=== PATIENT | female | born 1995 | race Caucasian/White ===

== ENCOUNTER → 2022-09-22 | Outpatient (REF) | payer OTHER ==
[2022-09-22 17:17] LABS: BASO # 0.1 10^3/uL (0.0-0.2); BASO % 0.7 % (0.0-1.0); EOS # 0.5 10^3/uL (0.0-0.5); HEMATOCRIT 47.3 % (36.0-47.0); HEMOGLOBIN 15.5 g/dl (12.0-15.5); LYMPH # 2.7 10^3/uL (1.5-5.0); MEAN CORPUSCULAR HEMOGLOBIN 27.2 pg (27.0-33.0); MEAN CORPUSCULAR HGB CONC 32.8 g/dl (32.0-36.5); MONO # 0.4 10^3/uL (0.0-0.8); MONO % 4.6 % (2.0-8.0); NEUTROPHILS # 5.3 10^3/uL (1.5-8.5); NEUTROPHILS % 59.4 % (36.0-66.0); PLATELET COUNT, AUTOMATED 386 10^3/uL (150-450)
[2022-09-22 17:40] LABS: APPEARANCE, URINE MANUAL CLEAR (CLEAR); BILIRUBIN, URINE MANUAL NEGATIVE (NEGATIVE); BLOOD URINE MANUAL TRACE (NEGATIVE); COLOR, URINE MANUAL YELLOW (YELLOW); GLUCOSE, URINE (UA) MANUAL NEGATIVE (NEGATIVE); KETONE, URINE MANUAL NEGATIVE (NEGATIVE); LEUKOCYTE ESTERASE, URINE MAN TRACE (NEGATIVE); NITRITE, URINE MANUAL NEGATIVE (NEGATIVE); PROTEIN, URINE MANUAL NEGATIVE (NEGATIVE); SPECIFIC GRAVITY,URINE MANUAL 1.015 (1.002-1.035); UROBILINOGEN, URINE MANUAL NORMAL (NORMAL)
[2022-09-22 17:56] LABS: ERYTHROCYTE SEDIMENTATION RATE 3 mm/hr (0-20)
[2022-09-22 17:58] LABS: ALBUMIN 4.6 GM/DL (3.2-5.2); ALT/SGPT 19 U/L (12-78); BILIRUBIN,TOTAL 0.8 MG/DL (0.2-1.0); BLOOD UREA NITROGEN 9 MG/DL (7-18); CALCIUM LEVEL 9.4 MG/DL (8.5-10.1); CARBON DIOXIDE LEVEL 28 MEQ/L (21-32); CHLORIDE LEVEL 104 MEQ/L (98-107); CREATININE FOR GFR 0.74 MG/DL (0.55-1.30); GLOMERULAR FILTRATION RATE > 60.0 (>60); GLUCOSE, FASTING 82 MG/DL (70-100); LDH LACTATE DEHYDROGENASE 194 U/L (84-246); POTASSIUM SERUM 3.7 MEQ/L (3.5-5.1); SODIUM LEVEL 140 MEQ/L (136-145); TOTAL PROTEIN 7.7 GM/DL (6.4-8.2)
[2022-09-22 18:17] LABS: IMMUNOGLOBULIN M 67.1 MG/DL (40-230); TOTAL PROTEIN 7.9 GM/DL (6.4-8.2)
[2022-09-22 18:56] LABS: BACTERIA, URINE SMALL AMOUNT; CALCIUM OXALATE CRYSTALS,URINE MOD AMOUNT /hpf; RBC, URINE 0-1 /hpf (0-3); SQUAMOUS EPITHELIAL CELL URINE SMALL AMOUNT /hpf (SMALL AMT); WBC, URINE 0-1 /hpf (0-3)
[2022-09-22 19:13] LABS: COMPLEMENT C3 120 MG/DL (90-180); COMPLEMENT C4 32 MG/DL (10-40); HEPATITIS B SURFACE ANTIGEN NEGATIVE (NEGATIVE); TOTAL 25(OH) VITAMIN D 32.5 NG/ML (30.0-100.0)
[2022-09-22 19:30] LABS: HEPATITIS C VIRUS ABY INDEX 0.2 INDEX (<0.8)
[2022-09-22 19:34] LABS: HEPATITIS B CORE ANTIBODY IGM NEGATIVE (NEGATIVE)
== END ==
LOC: M SFHCRHEU 14:31
PROVIDERS: ATTEND Internal Medicine Rheumatology
DX: R76.8 Other specified abnormal immunological findings in serum (principal); M35.3 Polymyalgia rheumatica; R21 Rash and other nonspecific skin eruption; M35.00 Sjogren syndrome, unspecified; R05.8 Other specified cough

== ENCOUNTER → 2022-10-08 | Outpatient (CLI) | payer OTHER | LOC: M WHC 12:25 | PROVIDERS: ATTEND Nurse Practitioner Family | DX: Z85.850 Personal history of malignant neoplasm of thyroid (principal) ==

== ENCOUNTER → 2022-10-12 | Outpatient (CLI) | payer OTHER | LOC: M PLALAB 12:55 | PROVIDERS: ATTEND Internal Medicine Rheumatology | DX: R76.8 Other specified abnormal immunological findings in serum (principal); M35.3 Polymyalgia rheumatica; R21 Rash and other nonspecific skin eruption; M35.00 Sjogren syndrome, unspecified; R05.8 Other specified cough ==

== ENCOUNTER → 2022-12-31 | Outpatient (CLI) | payer OTHER | LOC: M WHC 10:53 | PROVIDERS: ATTEND Nurse Practitioner Family | DX: N63.13 Unspecified lump in the right breast, lower outer quadrant (principal); Z12.31 Encounter for screening mammogram for malignant neoplasm of breast; Z80.3 Family history of malignant neoplasm of breast ==

== ENCOUNTER → 2023-01-07 | Outpatient (CLI) | payer OTHER | LOC: M RAD 13:46 | PROVIDERS: ATTEND Physician Assistant | DX: R59.0 Localized enlarged lymph nodes (principal) ==

== ENCOUNTER → 2023-01-12 | Outpatient (CLI) | payer OTHER ==
[~2023-01-12] MED LIST: **SFHN** LIDOCAINE 1% MDV 20ML VIAL ONE; **SFHN** SODIUM BICARBONATE 8.4% 10MEQ 10ML VIAL ONE; LEVO112T2 PO
[2023-01-12 10:32] VITALS: BP 122/70
== END ==
LOC: M WHCPRO 09:13
PROVIDERS: ATTEND Nurse Practitioner Family
DX: R92.8 Other abnormal and inconclusive findings on diagnostic imaging of breast (principal); N63.11 Unspecified lump in the right breast, upper outer quadrant

== ENCOUNTER → 2023-01-14 | Outpatient (CLI) | payer OTHER ==
[~2023-01-14] MED LIST changes: -**SFHN** LIDOCAINE 1% MDV 20ML VIAL ONE; -**SFHN** SODIUM BICARBONATE 8.4% 10MEQ 10ML VIAL ONE
== END ==
LOC: M PLAIMG 08:34
PROVIDERS: ATTEND Internal Medicine Rheumatology
DX: Z15.89 Genetic susceptibility to other disease (principal)

== ENCOUNTER → 2023-07-03 | Outpatient (CLI) | payer OTHER | LOC: M RAD 12:37 | PROVIDERS: ATTEND Internal Medicine Rheumatology | DX: Z15.89 Genetic susceptibility to other disease (principal) ==

== ENCOUNTER → 2023-08-03 | Outpatient (CLI) | payer OTHER | LOC: M WHC 10:59 | PROVIDERS: ATTEND Nurse Practitioner Family | DX: N63.13 Unspecified lump in the right breast, lower outer quadrant (principal) ==